=== PATIENT | male | born 1990 | race Caucasian/White ===

== ENCOUNTER 2016-10-19 02:14 | Emergency (ER) | payer SELFPAY ==
[2016-10-19 02:38] VITALS: BP 122/59; PULSE 86; TEMP 97.5
--- NOTE | 2016-10-19 02:42 | EDPRACDOC ---
- General Information Chief Complaint: Eye Problems Stated Complaint: FOREIGN BODY, LT EYE Time Seen by Provider: 10/19/16 02:38 Home Medications: Home Medications Amoxicillin/Clavulanate Potas. [Augmentin] 875 mg PO BID #20 tab 09/11/16 Ibuprofen Tablet [Motrin] 800 mg PO QID #30 tab 09/11/16 Tramadol HCl [Ultram] 50 mg PO Q6H #14 tab 09/11/16 Gentamicin Sulfate [Garamycin] 2 drops OU Q6 #1 bot 10/19/16 Hydrocodone Bit/Acetaminophen [Hydrocodon-Acetaminophen 5-325] 1 tab PO Q6 PRN # 15 tab 10/19/16 Allergies/Adverse Reactions: Allergies Allergy/AdvReac Type Severity Reaction Status Date / Time promethazine HCl Allergy Unknown Unknown/See Verified 09/11/16 09:39 [From Phenergan] Comments Sulfa (Sulfonamide Allergy Unknown Rash-Genera Verified 09/11/16 09:39 Antibiotics) lized - History of Present Illness Onset: 1600 HPI: PT STATES HE WAS USING A SAW TO CUT A PIECE OF METAL, STATES "FORGOT" TO PUT ON HIS SAFETY GOGGLES, STATES FELT SOMETHING GO INTO HIS LEFT EYE, STATES EYE HAS BEEN PAINFUL SINCE, STATES VISION IS "A LITTLE" BLURRY, NO LOSS OF VISION. NO OTHER INJURY, NO HEADACHE OR DIZZINESS. 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 Denies: Fever, Photophobia ED Past Medical History - History Reviewed Yes Nurses notes reviewed and agree except as marked - Patient Medical History Neurological History: Denies: Cerebrovascular Accident, Dementia Cardiac History: Denies: Atrial Fibrillation, Hypertension, Congestive Heart Failure, Heart Attack, Hypercholesterolemia Respiratory History: Denies: Asthma, COPD, Emphysema GI/ History: Denies: Gastroesophageal Reflux Psychological History: Reports: Bipolar Disorder. Denies: Depression Systemic History: Denies: Cancer, Diabetes Additional Past Medical History: Tourette's - Social Medical History Smoking Status: Heavy tobacco smoker (5 or more cigarettes/day or daily pipe/ cigar) EDM Review of Systems - Review of Systems Constitutional: negative: Chills, Fever Eyes: Blurred Vision, Redness. negative: Vision Loss Gastrointestinal: negative: Nausea, Vomiting Neurological: negative: Dizziness, Headache Integumentary: No Symptoms Reported - Physical Exam Constitutional: Alert (Awake), No apparent distress Oriented to: Time, Person, Place Last recorded Vital Signs: Last Vital Signs Temp 97.5 F 10/19/16 02:38 Pulse 86 10/19/16 02:38 Resp 18 10/19/16 02:38 BP 122/59 L 10/19/16 02:38 Pulse Ox 97 10/19/16 02:38 Oxygen Pulse Oxygen Saturation 97 O2 Device Oxygen Flow Rate Fraction of Inspired Oxygen ( FIO2) - HEENT Head: Normal ( normocephalic) Eye Exam: Conjunctival Injection Oropharynx: Normal (Pharynx:Moist without exudate,Gums-no swelling) Tympanic Membrane: Normal ENT EAC: Normal TMJ: Normal Nose: No Symptoms Reported (septum midline) Neck: Normal (FROM, trachea at midline) - Integumentary Skin: Normal, Warm, Dry Lymphatics: Normal (no adenopathy) - Neurologic Memory Impaired: Normal Motor Function: Normal (Normal tone, Pulses 2+ No cyanosis or edema, FROM) Cranial Nerve: Normal (CN II-X11 intact sensation, strength 5/5) Cerebellar: Normal Mood Description: Normal Perception: Normal ED Eye Problem Exam Eye Exam: left eye: conjunctival inflammation, foreign body (SMALL ROUND FB 10 O 'CLOCK), bilateral eye: PERRL, EOMI - Differential Diagnosis Bacterial Conjunctivitis, Corneal Abrasion, Foreign Body - Additional Information ATTEMPTED TO REMOVE FOREIGN BODY WITH STERILE Q-TIP, UNSUCCESSFUL, WILL REFER TO OPTHO IN THE MORNING. Decision Time to Discharge: 03:02 - Departure Disposition: Home Condition: Stable Final Diagnosis: Foreign body of left eye Qualifiers: Encounter type: initial encounter Qualified Code(s): T15.92XA - Foreign body on external eye, part unspecified, left eye, initial encounter Instructions: Eye Foreign Body (ED) Education/Counseling Given To: Patient Education/Counseling Given Regarding: Diagnosis, Treatment, Prognosis, Follow Up Referrals: Rafael Duran MD [Staff Physician] - One Week Prescriptions: Gentamicin Sulfate [Garamycin] 2 drops OU Q6 #1 bot Hydrocodone Bit/Acetaminophen [Hydrocodon-Acetaminophen 5-325] 1 tab PO Q6 PRN # 15 tab PRN Reason: Pain Additional Instructions: FOLLOW UP WITH DR DURAN'S OFFICE IN THE MORNING.
[2016-10-19] MEDS ORDERED: PROPARACAINE 0.5% OPHTH SOLN 15 ML BOTTLE OP ONE (02:43)
[2016-10-19] MEDS ORDERED: FLUORESCEIN SODIUM 1 MG APP OP ONE (02:43)
[2016-10-19 02:55] VITALS: BMI 19.1
[2016-10-19] MEDS ORDERED: HYDROCODONE 5 MG/ACETAMIN 325 MG TAB PO ONE (03:04)
== END 2016-10-19 03:21 | disposition home or self-care (01) ==
LOC: ED 02:14
DX: T15.92XA Foreign body on external eye, part unspecified, left eye, initial encounter (principal); X58.XXXA Exposure to other specified factors, initial encounter
CPT/HCPCS: 99283; J3490